=== PATIENT | female | born 1995 | race Caucasian/White ===

== ENCOUNTER 2017-06-10 22:21 | Emergency (ER) | payer MEDICAID, OTHER ==
[~2017-06-10] VITALS: Ht 162.6 cm; Wt 31.8 kg
[~2017-06-10 22:21] MED LIST: ALBU18HF2 IH; AZIT-63 PO; DEXA4TAB7 PO; NO HOME MEDS; PRED10TA23 PO
[2017-06-10 22:55] VITALS: BP 113/82
[2017-06-10] MEDS ORDERED: CLOT12CR TOP (23:32)
== END 2017-06-10 23:52 | disposition home or self-care (01) ==
LOC: ER 22:22
DX: B35.3 Tinea pedis (principal); J45.909 Unspecified asthma, uncomplicated; F12.10 Cannabis abuse, uncomplicated; F15.10 Other stimulant abuse, uncomplicated; Z79.899 Other long term (current) drug therapy
CPT/HCPCS: 99282

== ENCOUNTER 2017-08-24 13:37 | Emergency (ER) | payer MEDICAID, OTHER ==
[~2017-08-24] VITALS: Ht 157.5 cm; Wt 42.7 kg
[~2017-08-24 13:37] MED LIST changes: +CLOT12CR TOP
[2017-08-24] MEDS ORDERED: KEN0.1O TP (15:33)
[2017-08-24] MEDS ORDERED: PRED10TA PO (15:33)
[2017-08-24 15:43] VITALS: BP 104/67
== END 2017-08-24 15:45 | disposition home or self-care (01) ==
LOC: ER 13:38
DX: L23.7 Allergic contact dermatitis due to plants, except food (principal); J45.909 Unspecified asthma, uncomplicated; F12.90 Cannabis use, unspecified, uncomplicated; F15.90 Other stimulant use, unspecified, uncomplicated; F17.200 Nicotine dependence, unspecified, uncomplicated; Z79.2 Long term (current) use of antibiotics; Z79.899 Other long term (current) drug therapy; Z60.2 Problems related to living alone; Z59.0 Homelessness
CPT/HCPCS: 99283

== ENCOUNTER 2017-08-26 | Emergency (ER) | payer MEDICAID, OTHER ==
[~2017-08-26] VITALS: Ht 157.5 cm; Wt 42.7 kg
[~2017-08-26] MED LIST changes: +KEN0.1O TP; +PRED10TA PO
[2017-08-26 00:19] VITALS: BP 114/67
[2017-08-26] MEDS ORDERED: PERM60CR19 TP (01:29)
== END 2017-08-26 01:46 | disposition home or self-care (01) ==
LOC: ER
DX: R21 Rash and other nonspecific skin eruption (principal); R51 Headache; F12.90 Cannabis use, unspecified, uncomplicated; F15.90 Other stimulant use, unspecified, uncomplicated; J45.909 Unspecified asthma, uncomplicated; Z79.899 Other long term (current) drug therapy; Z59.0 Homelessness; Z60.2 Problems related to living alone
CPT/HCPCS: 99283